=== PATIENT | male | born 1965 | race Caucasian/White ===

== ENCOUNTER → 2025-01-02 | Day surgery (SDC) | payer BC ==
[~2025-01-02] MED LIST: ACETAMINOPHEN 1000 MG/100 ML 100 ML IV ONE; ACETAMINOPHEN-1 EAC4 PO; DEXAMETHASONE SOD PHOS INJ 4 MG/ML SDV ONE; FENTANYL CITRATE/PF 100MCG/2 ML INJ ONE; KETOROLAC TROMETHAMINE 30 MG/ML VIAL ONE; LIDOCAINE HCL 2% LOCAL INJ 5 ML SDV VIAL INJ ONE; MIDAZOLAM HCL 2 MG/2 ML VIAL ONE; PROPOFOL IV EMULSION 10 MG/ML 20 ML VIAL ONE; SEVOFLURANE INHAL SOLN 250 ML PEN BTL ONE; TESTOSTERO100 MG/1 M INJ
[2025-01-02] MEDS: LACTATED RINGER'S 1,000 ML ONE (05:50)
[2025-01-02 07:55] VITALS: BP 110/64; PULSE 78; RESP 17; O2SAT 96
== END | disposition home or self-care (01) ==
LOC: OR 05:29
PROVIDERS: ATTEND Plastic Surgery
DX: D17.9 Benign lipomatous neoplasm, unspecified (principal); R00.1 Bradycardia, unspecified; Z01.810 Encounter for preprocedural cardiovascular examination
CPT/HCPCS: 21014; 88304; 93005; J0131; J0690; J1100; J1885; J2003; J2250; J2704; J3010; J7121